=== PATIENT | female | born 1970 | race Two or more races ===

== ENCOUNTER 2020-07-22 07:53 | Emergency (ER) | payer MEDICAID ==
[~2020-07-22] VITALS: Ht 157.5 cm; Wt 90.7 kg
[2020-07-22 09:51] VITALS: BP 144/84
== END 2020-07-22 09:55 | disposition home or self-care (01) ==
LOC: ER 07:53
DX: M77.8 Other enthesopathies, not elsewhere classified (principal)

== ENCOUNTER 2023-01-13 10:13 | Emergency (ER) | payer MEDICAID ==
[~2023-01-13] VITALS: Ht 157.5 cm; Wt 91.0 kg
[2023-01-13 15:15] VITALS: BP 148/63; PULSE 89; RESP 18; TEMP 98; O2SAT 96
== END 2023-01-13 15:35 | disposition home or self-care (01) ==
LOC: ER 10:13
DX: M79.604 Pain in right leg (principal)
CPT/HCPCS: 93971

== ENCOUNTER 2023-04-25 23:20 | Emergency (ER) | payer MEDICAID ==
[~2023-04-25] VITALS: Ht 157.5 cm; Wt 100.0 kg
[2023-04-26 02:36] VITALS: BP 126/68; PULSE 93; RESP 20; TEMP 97.2; O2SAT 95
[2023-04-26] MEDS ORDERED: AZIT-43 PO (02:58)
[2023-04-26] MEDS ORDERED: ACET500T58 PO (02:58)
[2023-04-26] MEDS ORDERED: PRED20TA2 PO (02:58)
[2023-04-26] MEDS: cefTRIAXone SOD 1,000 MG VL IM ONE (03:03)
[2023-04-26] MEDS: methylPREDNISolone SOD SUCC 125 MG/2 ML VL IM ONE (03:04)
== END 2023-04-26 03:17 | disposition home or self-care (01) ==
LOC: ER 23:20
DX: J20.9 Acute bronchitis, unspecified (principal); E03.9 Hypothyroidism, unspecified
CPT/HCPCS: 96372; 99284; J0696; J2930